=== PATIENT | female | born 1970 | race Two or more races ===

== ENCOUNTER 2024-04-15 14:10 | Emergency (ER) | payer OTHER ==
[~2024-04-15] VITALS: Ht 165.1 cm; Wt 103.4 kg
[2024-04-15 14:39] VITALS: BP 134/87; TEMP 98.4
[2024-04-15] MEDS ORDERED: CYCL15CA23 PO (16:08)
[2024-04-15] MEDS ORDERED: GABA-532 PO (16:08)
[2024-04-15 16:31] VITALS: O2SAT 98
== END 2024-04-15 16:32 | disposition home or self-care (01) ==
LOC: ER 14:39
DX: M54.59 Other low back pain (principal); M79.671 Pain in right foot; M25.571 Pain in right ankle and joints of right foot; E03.9 Hypothyroidism, unspecified; Z79.899 Other long term (current) drug therapy; X58.XXXA Exposure to other specified factors, initial encounter; Y93.89 Activity, other specified; Y92.098 Other place in other non-institutional residence as the place of occurrence of the external cause; Y99.8 Other external cause status
CPT/HCPCS: 72131-TC; 73610-TC; 73630-TC